=== PATIENT | male | born 1960 | race Caucasian/White ===

== ENCOUNTER 2019-08-22 08:38 | Outpatient (CLI) | payer BC | END 2019-08-22 08:39 | disposition home or self-care (01) | LOC: CTENTCT 08:38 | PROVIDERS: ATTEND Otolaryngology Plastic Surgery within the Head & Neck | DX: J32.9 Chronic sinusitis, unspecified (principal) | CPT/HCPCS: 70486 ==

== ENCOUNTER 2019-09-28 06:10 | Day surgery (SDC) | payer BC ==
[2019-09-27 13:49] VITALS: BMI 27.8
[2019-09-28] MEDS ORDERED: Oxymetazoline HCl 0.05% ( 15 ML ) ONE ×2 (07:47→09:11)
[2019-09-28] MEDS ORDERED: Midazolam HCl 2 mg/2 ml Vial ONE (08:43)
[2019-09-28] MEDS ORDERED: Lidocaine 1% w/Epinephrine 1:100K 20 ML VIAL ONE (09:11)
[2019-09-28] MEDS ORDERED: Bacitracin Zinc Ointment 30 gm TUBE ONE (09:11)
[2019-09-28] MEDS ORDERED: Fentanyl 250 MCG/5 ML VIAL ONE (09:20)
[2019-09-28] MEDS ORDERED: Morphine 4 MG/ML VIAL ONE (10:40)
[2019-09-28] MEDS ORDERED: Fentanyl 100 MCG/2 ML VIAL ONE ×2 (10:45→10:58)
[2019-09-28] MEDS ORDERED: HYDROmorphone 2 MG/ML VIAL ONE (11:18)
[2019-09-28] MEDS ORDERED: hydrALAZINE 20 MG/ML VIAL ONE (11:25)
[2019-09-28] MEDS ORDERED: Promethazine HCl 25 MG/ML VIAL IM/IV PRN (12:07)
[2019-09-28] MEDS ORDERED: Non-Formulary Medication 1 EACH PO PRN (12:07)
[2019-09-28] MEDS ORDERED: Ondansetron HCl/PF 4 MG/2 ML Vial IVP PRN (12:07)
[2019-09-28] MEDS ORDERED: HYDROmorphone 2 MG/ML VIAL SLOW IVP PRN (12:07)
[2019-09-28] MEDS ORDERED: Morphine Sulfate 2 MG/ML SYRINGE SLOW IVP PRN (12:07)
[2019-09-28] MEDS ORDERED: PACU-Morphine 4MG/ML VIAL SLOW IVP PRN (12:07)
[2019-09-28] MEDS ORDERED: Hydrocodone-Acetamin 15 ML UDCUP ONE (12:28)
--- NOTE | 2019-09-28 16:57 | EKG ---
Test Reason : PREOP Blood Pressure : / mmHG Vent. Rate : 064 BPM Atrial Rate : 064 BPM P-R Int : 224 ms QRS Dur : 138 ms QT Int : 426 ms P-R-T Axes : 005 071 017 degrees QTc Int : 439 ms Sinus rhythm with 1st degree A-V block Right bundle branch block T wave abnormality, consider anterior ischemia Abnormal ECG Confirmed by NABILA PERALES ([id number]) on 09/28/2019 4:57:20 PM Referred By: ENRICO Confirmed By:NABILA PERALES
--- NOTE | 2019-09-29 12:49 | OP ---
DATE OF PROCEDURE: 09/28/2019 PREOPERATIVE DIAGNOSES: 1. Chronic rhinosinusitis. 2. Nasal septal deviation. 3. Bilateral inferior turbinate hypertrophy. 4. Nasal obstruction. 5. Uvula swelling. POSTOPERATIVE DIAGNOSES: 1. Chronic rhinosinusitis. 2. Nasal septal deviation. 3. Bilateral inferior turbinate hypertrophy. 4. Nasal obstruction. 5. Uvula swelling. ESTIMATED BLOOD LOSS: 20 mL. PROCEDURES PERFORMED: 1. Bilateral endoscopic sinus surgery and total ethmoidectomies. 2. Bilateral endoscopic sinus surgery and maxillary antrostomies. 3. Bilateral endoscopic sinus surgery and frontal sinusotomies. 4. Nasal septoplasty. 5. Bilateral inferior turbinate submucosal resection. 6. Uvulectomy. COMPLICATIONS: None. ANESTHESIA: GETA. DESCRIPTION OF PROCEDURE: The patient was taken to operating room and placed supine on the table. General endotracheal anesthesia was obtained by the anesthesia staff. Following this, a Dafne-Adi mouth gag was introduced into the oral cavity and was retracted. The excessive portions of the uvula were then trimmed with the Bovie electrocautery and 3-0 chromic gut stitches were placed reapproximating the mucosa. Following this, cool saline was used to irrigate the oral cavity and was suctioned. Following this, the patient was taken to the operating room and GETA was obtained by the anesthesia staff. Afrin pledgets were then placed into the nasal cavity bilaterally. The patient was placed into the beach chair position and was prepped and draped for standard nasal surgical procedures. Following this, the Afrin pledgets were removed and 1% lidocaine with 1:100,000 epinephrine was injected via a 27 gauge needle into the nasal septum, the inferior turbinate and the middle turbinate bilaterally. Following this, a Marcelino incision was made on the left nasal septum and mucoperichondrial flaps were elevated. A strong 2 cm caudal and dorsal cartilage strut was left intact as the deviated portions of the nasal cartilage and bone was removed. A 4-0 gut stitch was used to reapproximate the nasal mucoperichondrial flaps as well as close the Marcelino incision. Following this, the submucosal microdebrider was used to puncture and submucosally resect the anterior- inferior portions of the hypertrophic inferior turbinates. The inferior turbinates were laterally outfractured with a Geneva elevator. Following this, 1% lidocaine with 1:100,000 epinephrine were injected into the middle turbinates and lateral nasal wall bilaterally. Following this, the 0-degree endoscope was used to visualize the middle turbinate and the middle turbinate was medially fractured using a Geneva elevator. Following this, the uncinate process was identified and was examined. The uncinate process was noted to be inflamed and laterally displaced bilaterally. Following this, a ball-ended probe was used to anteriorly fracture the uncinate process bilaterally. Following this, the 0-degree microdebrider and the up-biting Blakesley forceps were used to remove the uncinate process bilaterally. Following this, the natural maxillary sinus ostia was identified with the 0-degree endoscope and the ball-ended probe. The natural maxillary ostia were then widened using a 40-degree microdebrider and the straight Blakesley forceps bilaterally. Following this, the ethmoidal bulla was identified bilaterally. A 0-degree microdebrider was used to puncture the ethmoidal bulla on its medial and inferior aspect bilaterally. Following this, the 0-degree microdebrider and the up-biting Blakesley forceps were used to remove the ethmoidal bulla. Following this, the grand lamella was identified posterior to this area and was punctured using the 0-degree microdebrider bilaterally. Following this, the ethmoidal cells were opened from the posterior to the anterior using the 0-degree microdebrider, the 40-degree microdebrider and the up-biting Blakesley forceps bilaterally. Following this, the 45-degree endoscope and the 40-degree microdebrider blade were used to further remove the anterior ethmoidal cells to the level of the frontal sinus recess bilaterally. Following this, the 45-degree endoscope was used to visualize the frontal recess area and anterior ethmoidal sinuses. Following this, the 40-degree microdebrider blade and the up-biting Blakesley forceps were used to further open the anterior ethmoidal cells and expose the frontal sinus ostia bilaterally. Following this, the frontal sinus ostia was widened using the 40-degree microdebrider bilaterally. Following this, nasal cavity was irrigated and NasoPore packing was placed within the middle meatus bilaterally. Langley splints were placed and secured. The patient tolerated the procedure well. Job ID: [id number]
== END 2019-09-28 14:00 | disposition home or self-care (01) ==
LOC: SDC 06:10
PROVIDERS: ATTEND Otolaryngology Plastic Surgery within the Head & Neck
DX: J32.9 Chronic sinusitis, unspecified (principal); J34.2 Deviated nasal septum; J34.3 Hypertrophy of nasal turbinates; J34.89 Other specified disorders of nose and nasal sinuses; K13.79 Other lesions of oral mucosa; J30.9 Allergic rhinitis, unspecified; R53.83 Other fatigue; I10 Essential (primary) hypertension; E78.00 Pure hypercholesterolemia, unspecified; G89.29 Other chronic pain; F32.9 Major depressive disorder, single episode, unspecified; Z79.899 Other long term (current) drug therapy
CPT/HCPCS: 88302; 93005; 93010; J0131; J0360; J1170; J2250; J2270; J3010